=== PATIENT | female | born 1995 | race Caucasian/White ===

== ENCOUNTER → 2016-12-24 | Outpatient (CLI) | payer BC, MEDICAID ==
--- NOTE | 2016-12-24 22:03 | CT ---
EXAMINATION TYPE: CT iac wo con DATE OF EXAM: 12/24/2016 COMPARISON: Previous CT scan of the brain dated 09/09/2011. HISTORY: Hearing loss left ear CT DLP: 150mGycm Automated exposure control for dose reduction was used. FINDINGS: Visualized portions of the paranasal sinuses and mastoids are clear. The external auditory canals are patent. Middle ear structures appear normal. The ossicular chain is intact. Both scuta are normal. Inner ear structures are normal. There is no widening of the porus acoustic this on either side. Visualized intracranial structures are unremarkable. I do not see evidence of CP angle mass lesion. IMPRESSION: NORMAL CT SCAN OF THE IACS.
== END | disposition home or self-care (01) ==
LOC: RADCTMAIN 17:24
PROVIDERS: ATTEND Otolaryngology
DX: H91.93 Unspecified hearing loss, bilateral (principal)
CPT/HCPCS: 70480